=== PATIENT | female | born 1995 | race Caucasian/White ===

== ENCOUNTER → 2016-04-15 | Outpatient (CLI) | payer OTHER ==
--- NOTE | 2016-04-15 14:41 | DIAGNOSTIC IMAGING REPORT ---
CHEST 2 VIEWS ROUTINE CLINICAL HISTORY: Shortness of breath. COMPARISON STUDY: No previous studies for comparison. FINDINGS: Lung volumes are normal. Lungs are clear. There is no pneumothorax or pleural effusion. Cardiac size is normal. Mediastinal contours are normal. There is no evidence of pulmonary edema. IMPRESSION: No acute cardiopulmonary findings. Electronically signed by: Tomy Silva M.D. 04/15/2016 2:39 PM Dictated Date/Time: 04/15/2016 2:38 PM
== END | disposition home or self-care (01) ==
LOC: C.RDSM 14:04
PROVIDERS: ATTEND Family Medicine
DX: R06.02 Shortness of breath (principal)

== ENCOUNTER 2017-03-16 14:30 | Emergency (ER) | payer OTHER ==
[~2017-03-16] VITALS: Ht 167.6 cm; Wt 76.8 kg
[2017-03-16 14:36] VITALS: BP 132/75; PULSE 91; TEMP 36.7; O2SAT 99; Ht 167.6 cm; Wt 76.8 kg
[2017-03-16] MEDS ORDERED: ETON1IMP2 INTRAD (14:53)
[2017-03-16] MEDS ORDERED: LIDO/EPINEPHRINE/SOD BICARB 20 ML VIAL INFIL ONE (15:00)
--- NOTE | 2017-03-16 15:17 | EMERGENCY ROOM VISIT NOTE ---
ED Visit Note First contact with patient: 14:41 CHIEF COMPLAINT: Left hand laceration 2 hours ago HISTORY OF PRESENT ILLNESS: Patient is a [id number] 21-year-old white female who presents to the emergency department for evaluation of a laceration to the left hand that she sustained about 2 hours ago. She was using a knife to open a package and on a bottle of olive oil, when she slipped, as puncturing the back of her left hand, in the webspace between the thumb and index finger. The bleeding stopped shortly after the injury and there is no weakness or numbness of the hand or fingers. 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 She has no pain. REVIEW OF SYSTEMS: Review of systems as per HPI. All other systems reviewed were negative. At least 6 systems reviewed. PMH: Electronic medical records are reviewed and summarized as above/below. See Problem List. Her tetanus is current. SOCIAL HISTORY: Patient is a [employer] student from [place] who lives locally with a roommate. Denies tobacco or alcohol use. PHYSICAL EXAM: Vital Signs: Reviewed Nurse's notes. There is a 1 cm long laceration in the webspace of the left hand, between the thumb and index finger. The edges are gaping widely apart. There is no foreign material in the wound and it looks clean. There is no active bleeding. No deep structures such as tendons or nerves are seen in the base of the wound. Extension and flexion of the fingers is full and strong. Sensation to pain and light touch is intact. EMERGENCY DEPARTMENT COURSE: Using sterile technique, saline and Betadine cleansing, and 1% lidocaine anesthesia, the laceration was irrigated with saline and then repaired with 4, 5-0 nylon sutures. Bacitracin and a light dressing were applied. 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 She was advised to avoid any activities where she would be stretching her hand, in addition to applying pressure such as pushups. Wound care measures were discussed. She can follow up with her sports medicine staff for suture removal in 12-14 days. The patient does not have any evidence for nerve, vascular or tendinous injury. Mechanism is not consistent with fracture or foreign body. Medication reconciliation: I attest that I have personally reviewed the patient' s current medication list. Blood pressure screening : Patient was found to have normal blood pressure on screening and does not require follow-up. Problem List Surgical Problems: (1) History of wisdom tooth extraction Status: Resolved Current/Historical Medications Scheduled Etonogestrel (Nexplanon), INTRAD UD Allergies Coded Allergies: No Known Allergies (Unverified , 03/16/17) Vital Signs Date Time Temp Pulse Resp B/P (MAP) Pulse Ox O2 Delivery O2 Flow Rate FiO2 03/16/17 14:36 36.7 91 16 132/75 99 Room Air Medications Administered Medications (Trade) Dose Ordered Sig/Dionte Route Start Time Stop Time Status Last Admin Dose Admin Lidocaine/ Epinephrine (Buffered Xylocaine/ Epinephrine 1% Inj) 20 ml NOW ONCE INFIL 03/16/17 15:00 03/16/17 15:01 DC 03/16/17 14:52 20 ML Departure Information Impression Primary Impression: Laceration of left hand Referrals No Doctor, Assigned (PCP) Patient Instructions My [facility] Additional Instructions Keep wound clean and dry. Do not allow any crusting or dried blood to accumulate on sutures. Avoid immersing for extended periods of time in standing water. Clean gently with mild soap and water daily. May also cleanse with a 1:1 solution of hydrogen peroxide/water on a Q-tip to remove any crusting or scabs from the suture line. Use an antibiotic ointment for 3-4 days , then let wound dry. Suture removal in 12-14 days. Return sooner for any signs of infection (increasing redness, swelling, drainage). Ice and elevate for swelling and pain. Ibuprofen 600 mg and Tylenol 1000 mg every 6 hrs for pain.
== END 2017-03-16 15:24 | disposition home or self-care (01) ==
LOC: C.EDB 14:33 → C.EDD 15:24
DX: S61.412A Laceration without foreign body of left hand, initial encounter (principal); W26.0XXA Contact with knife, initial encounter